=== PATIENT | male | born 1995 | race African-American/Black ===

== ENCOUNTER 2024-04-26 03:09 | Emergency (ER) | payer MEDICAID ==
[~2024-04-26] VITALS: Ht 177.8 cm; Wt 68.0 kg
[2024-04-26] MEDS ORDERED: AMOX1TAB16 MT (03:50)
[2024-04-26] MEDS: TETANUS, DIPHTHERIA, PERTUSSIS VAC/PF 0.5ML (>10YR OLD) IM ONE (03:58)
[2024-04-26] MEDS: BACITRACIN ZINC OINT UDPKT TOP ONE (04:00)
[2024-04-26 04:13] VITALS: BP 134/77; PULSE 77; RESP 18; TEMP 98
== END 2024-04-26 04:08 ==
LOC: ER 03:09 → EDBD 03:09 → ER 04:08
DX: S51.811A Laceration without foreign body of right forearm, initial encounter (principal); W50.3XXA Accidental bite by another person, initial encounter; Y93.89 Activity, other specified; Y92.89 Other specified places as the place of occurrence of the external cause; Y99.8 Other external cause status
CPT/HCPCS: 90715; 90471; 99283; Z7610 ×2